=== PATIENT | female | born 1985 | race Caucasian/White ===

== ENCOUNTER → 2021-03-21 | Outpatient (CLI) | payer OTHER ==
[~2021-03-21] MED LIST: MOTRIN 600600 MG/TAB PO; MOTRIN 800800 MG/TAB PO; PERCOCET 325 MG1 TA2 PO; PRENATAL MVI; SYNTHROID 0.0.025 MG PO; TUMS500 MG PO
== END ==
LOC: ZCOL.LAB 08:57
DX: Z20.822 Contact with and (suspected) exposure to COVID-19 (principal)

== ENCOUNTER 2021-03-23 10:14 | Inpatient (IN) | payer OTHER ==
[2021-03-23] VITALS (16 sets, daily range): BP systolic 101–144; BP diastolic 66–82; PULSE 61–90; TEMP 97.8–98.4
[~2021-03-23] VITALS: Ht 160 cm; Wt 60.5 kg
[~2021-03-23 10:14] MED LIST changes: -MOTRIN 800800 MG/TAB PO
--- NOTE | 2021-03-23 10:20 | NUR ---
[id number]-G2L1 37.6 38.[address] Bliss to 213 for scheduled repeat c/s. Patient reports good FM, Denies regular contractions or leaking of fluid/bleeding. Patient Updated on plan of care and placed on EFM, Category I FHR. VSS. Assessment reviewed, consents signed. IV to right forearm, blood collected and sent to lab. LR infusing per order.
[2021-03-23 11:15] LABS: BASO # 0.1 (0.0-0.2); BASO % 0.6 % (0.0-2.0); EOS % 0.5 % (0-4.0); GRAN # 5.9 (1.4-6.5); GRAN % 75.2 % (42.2-75.2); HEMATOCRIT 41.6 % (37.0-47.0); HEMOGLOBIN 14.2 g/dl (12.5-16.0); LYMPH # 1.4 (1.2-3.4); LYMPH % 17.2 % (20.0-51.0); MEAN CELL VOLUME 88 fl (80.0-100.0); MEAN CORPUSCULAR HEMOGLOBIN 30 pg (27.0-31.0); MEAN CORPUSCULAR HGB CONC 34 g/dl (33.0-37.0); MEAN PLATELET VOLUME 11.3 fl (7.4-10.4); MONO # 0.5 (0.1-0.6); PLATELET COUNT 231 K/mm3 (130-400); RED BLOOD COUNT 4.71 M/mm3 (4.10-5.30)
[2021-03-23] MEDS ORDERED: MOTRIN 800800 MG/TAB PO (20:48)
[2021-03-23] MEDS ORDERED: PERCOCET 325 MG1 TA2 PO (20:48)
[2021-03-24 00:30] VITALS: BP 110/64; PULSE 60; TEMP 98.2
[2021-03-24 07:14] VITALS: BP 114/68; PULSE 76; TEMP 98.3
--- NOTE | 2021-03-24 10:21 | NUR ---
Initial visit; Patient thanked [employer] Worker for offering congratulations for the of her daughter. [employer] Worker thanked patient for choosing [facility].
[2021-03-24 16:03] VITALS: BP 114/68; PULSE 87; TEMP 98.2
[2021-03-24 20:30] VITALS: BP 126/88; PULSE 64; TEMP 98.2
[2021-03-25 02:30] VITALS: BP 118/69; PULSE 68; TEMP 98.4
[2021-03-25 08:15] VITALS: BP 135/86; PULSE 81; TEMP 97.4
--- NOTE | 2021-03-25 12:41 | NUR ---
1230 DISCHARGE INSTRUCTIONS REVIEWED WITH PATIENT AND SPOUSE. BOTH VERBALIZED UNDERSTANDING. 1235 ALL PERSONAL BELONGINGS GATHERED FROM PATIENT ROOM. PATIENT LEFT AMBULATORY AND IN NO APPARENT DISTRESS. PATIENT ACCOMPANIED BY SPOUSE AND Reena RUANO RN.
== END 2021-03-25 12:35 | disposition home or self-care (01) | DRG 788 ==
LOC: OB 10:14
PROVIDERS: ADMIT Obstetrics & Gynecology
PROC: 10D00Z1 Extraction of Products of Conception, Low, Open Approach (ICD-10-PCS; principal; 2021-03-23)
DX: O32.1XX0 Maternal care for breech presentation, not applicable or unspecified (principal); Z3A.38 38 weeks gestation of pregnancy; Z37.0 Single live birth; O99.284 Endocrine, nutritional and metabolic diseases complicating childbirth; O36.5930 Maternal care for other known or suspected poor fetal growth, third trimester, not applicable or unspecified; E03.9 Hypothyroidism, unspecified
CPT/HCPCS: J0690; J1885; J2175; J2405; J2590; J7120